=== PATIENT | female | born 1995 | race Caucasian/White ===

== ENCOUNTER 2018-11-12 01:21 | Emergency (ER) | payer SELFPAY ==
[2018-11-12 02:08] LABS: CHLORIDE,CL 104 mEq/L (98-106); SODIUM,NA 141 mEq/L (136-145)
--- NOTE | 2018-11-12 02:10 | EDM.PDOC ---
ED HPI GENERAL MEDICAL PROBLEM - General Chief Complaint: General Stated Complaint: SHORT OF BREATH, NECK PAIN Time Seen by Provider: 11/12/18 01:38 Source of Information: Reports: Patient History Limitations: Reports: No Limitations - History of Present Illness INITIAL COMMENTS - FREE TEXT/NARRATIVE: Kassie is a 23 yo female who presents to the ED, accompanied by significant other, with concerns of shortness of breath. States she has a discomfort when she takes a full inspiration. She does get some discomfort in the right posterior shoulder/neck area as well with deep inspiration. Denies any other chest pain. States the shortness of breath feeling has been present for the last week. Does not get worse with exertion. Denies any chance of . No history of lung disease or heart problems. States has otherwise been healthy. No recent infections or upper respiratory symptoms. 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 [No Known Home Meds] 11/12/18 [History] Past Medical History - Past Health History Medical/Surgical History: Denies Medical/Surgical History - Past Surgical History GI Surgical History: Reports: Appendectomy, Cholecystectomy Social & Family History - Tobacco Use Smoking Status *Q: Current Every Day Smoker Years of Tobacco use: 1 Packs/Tins Daily: 1 ED ROS GENERAL - Review of Systems Review Of Systems: ROS reveals no pertinent complaints other than HPI. Constitutional: Denies: Fever, Chills, Diaphoresis HEENT: Reports: No Symptoms Respiratory: Reports: Shortness of Breath, Pleuritic Chest Pain. Denies: Wheezing, Cough Cardiovascular: Reports: No Symptoms GI/Abdominal: Reports: No Symptoms Skin: Reports: No Symptoms Neurological: Reports: No Symptoms Psychiatric: Reports: Anxiety ED EXAM, GENERAL - Physical Exam Exam: See Below Exam Limited By: No Limitations General Appearance: Alert, WD/WN, No Apparent Distress Ears: Normal External Exam, Normal Canal, Hearing Grossly Normal, Normal TMs Nose: Normal Inspection, Normal Mucosa, No Blood Throat/Mouth: Normal Inspection, Normal Lips, Normal Teeth, Normal Gums, Normal Oropharynx, Normal Voice, No Airway Compromise Head: Atraumatic, Normocephalic Neck: Normal Inspection, Supple Respiratory/Chest: No Respiratory Distress, Lungs Clear, Normal Breath Sounds, No Accessory Muscle Use, Chest Non-Tender. No: Rales, Rhonchi, Wheezing, Stridor, Accessory Muscle Use, Retractions, Splinting, Prolonged Expiration Cardiovascular: Regular Rate, Rhythm, No Murmur GI/Abdominal: Normal Bowel Sounds, Soft, Non-Tender, No Distention, No Mass. No : Guarding, Rigid, Hepatomegaly, Splenomegaly Extremities: Normal Inspection, No Pedal Edema, Normal Capillary Refill Neurological: Alert, Oriented, Normal Cognition Psychiatric: Anxious Skin Exam: Warm, Dry, Intact, Normal Color, No Rash EKG INTERPRETATION EKG Date: 11/12/18 Time: 02:00 Rhythm: NSR Comparison: NA - No Prior EKG Course - Vital Signs Last Recorded V/S: Last Vital Signs Temp 97.7 F 11/12/18 01:25 Pulse 86 11/12/18 01:25 Resp 16 11/12/18 01:25 BP 155/79 H 11/12/18 01:25 Pulse Ox 100 11/12/18 01:25 - Orders/Labs/Meds Orders: Active Orders 24 hr Category Date Time Status EKG Documentation Completion [RC] STAT Care 11/12/18 01:54 Ordered BASIC METABOLIC PANEL,BMP [CHEM] Stat Lab 11/12/18 01:53 Ordered C-REACTIVE PROTEIN [CHEM] Stat Lab 11/12/18 01:53 Ordered CBC WITH AUTO DIFF [HEME] Stat Lab 11/12/18 01:53 Ordered HCG QUALITATIVE,URINE [URCHEM] Stat Lab 11/12/18 01:53 Ordered Departure - Departure Time of Disposition: 02:33 Disposition: Home, Self-Care 01 Clinical Impression: Pleurisy, Shortness of breath - Discharge Information Instructions: Shortness of Breath, Adult, [id number], Pleurisy, [id number] Referrals: PCP,None [Primary Care Provider] - Additional Instructions: 1) Steroid injection given in ER 2) May take ibuprofen 400mg two or three times a day as needed 3) Rest today 4) If symptoms worsen, any new onset of symptoms, recommend returning for reevaluation. 5) Handout on shortness of breath and pleurisy attached. - Problem List & Annotations (1) Pleurisy SNOMED Code(s): 740749018 Code(s): R09.1 - PLEURISY Status: Acute Current Visit: Yes (2) Shortness of breath SNOMED Code(s): 177714454 Code(s): R06.02 - SHORTNESS OF BREATH Status: Acute Current Visit: Yes - My Orders Last 24 Hours: My Active Orders 11/12/18 01:53 BASIC METABOLIC PANEL,BMP [CHEM] Stat C-REACTIVE PROTEIN [CHEM] Stat CBC WITH AUTO DIFF [HEME] Stat HCG QUALITATIVE,URINE [URCHEM] Stat 11/12/18 01:54 EKG Documentation Completion [RC] STAT - Assessment/Plan Last 24 Hours: My Active Orders 11/12/18 01:53 BASIC METABOLIC PANEL,BMP [CHEM] Stat C-REACTIVE PROTEIN [CHEM] Stat CBC WITH AUTO DIFF [HEME] Stat HCG QUALITATIVE,URINE [URCHEM] Stat 11/12/18 01:54 EKG Documentation Completion [RC] STAT Plan: Labs were unremarkable today. EKG showed NSR. Elected to wait on chest x-ray as lungs were clear and oxygen saturation of 99% on RA. Discussed pleurisy with Kassie. See additional instructions.
[2018-11-12] MEDS ORDERED: methylPREDNISolone Sodium Succinate 125 MG/2 ML SDV IM ONE (02:24)
== END 2018-11-12 02:40 | disposition home or self-care (01) ==
LOC: CC.ED 01:21
DX: R09.1 Pleurisy (principal); F17.210 Nicotine dependence, cigarettes, uncomplicated
CPT/HCPCS: 36415; 80048; 81025; 85025; 86140; 93005; 96372; 99283; J2930

== ENCOUNTER 2019-12-13 00:15 | Emergency (ER) | payer BC ==
[2019-12-13] MEDS ORDERED: Ondansetron 4 MG/2 ML SDV IVPUSH STA (00:32)
[2019-12-13] MEDS ORDERED: Sodium Chloride 0.9% 1,000 ML IV ONE (00:32)
[2019-12-13] MEDS ORDERED: LORazepam 2 MG/ML Syringe IVPUSH ONE ×2 (00:32→01:56)
--- NOTE | 2019-12-13 00:41 | EDM.PDOC ---
ED HPI GENERAL MEDICAL PROBLEM - General Chief Complaint: Chest Pain Stated Complaint: left chest pain Time Seen by Provider: 12/13/19 00:19 Source of Information: Reports: Patient History Limitations: Reports: No Limitations - History of Present Illness INITIAL COMMENTS - FREE TEXT/NARRATIVE: This patient is a 24 year old female that presents to the ER. Patient reports that started on Saturday with some mild congestion, cough, shortness of breath, headache, fatigue. She reports that then this evening she was at the bar having some drinks and drinking redbull and vokda, she had four drinks. She reports that she felt like almost blacked out, but she remembers everything. She reports that she had a sudden pain, heaviness in her chest, she became short of breath, nauseated, and has vomited. She reports that she has never felt like this before. Patient arrived to the ER, she is tearful, anxious, and has continued pain in her chest. She reports she works at the [employer] and has been around people with COVID. She reports being tested at the [employer] today, but has not got those results yet. Patient does JUUL. Onset: Today Onset Date: 12/12/19 Duration: Hour(s): (1) Location: Reports: Chest Quality: Reports: Other (Heavy, sitting on chest) Severity: Moderate Improves with: Reports: None Worsens with: Reports: None Associated Symptoms: Reports: Chest Pain, Cough, Headaches, Nausea/Vomiting, Shortness of Breath. Denies: Confusion, cough w sputum, Diaphoresis, Fever/Chills, Loss of Appetite, Malaise, Rash, Seizure, Syncope, Weakness Left Anterior Chest Pain Score (Numeric/FACES): 8 - Related Data Allergies Allergy/AdvReac Type Severity Reaction Status Date / Time latex Allergy Rash Verified 11/12/18 01:21 strawberry Allergy Difficulty Verified 12/13/19 00:23 Breathing Home Meds: Home Meds Sertraline HCl 50 mg PO DAILY 12/13/19 [History] Past Medical History - Past Health History Medical/Surgical History: Denies Medical/Surgical History - Past Surgical History GI Surgical History: Reports: Appendectomy, Cholecystectomy ED ROS GENERAL - Review of Systems Review Of Systems: See Below Constitutional: Reports: Fatigue HEENT: Reports: Sinus Problem (congestion) Respiratory: Reports: Shortness of Breath, Cough Cardiovascular: Reports: Chest Pain. Denies: Dyspnea on Exertion, Lightheadedness, Palpitations, Syncope Endocrine: Reports: No Symptoms GI/Abdominal: Reports: Abdominal Pain, Nausea, Vomiting. Denies: Diarrhea : Reports: No Symptoms Musculoskeletal: Reports: No Symptoms Skin: Reports: No Symptoms Neurological: Reports: Headache. Denies: Seizure, Syncope, Weakness, Change in Speech Psychiatric: Reports: Anxiety Hematologic/Lymphatic: Reports: No Symptoms Immunologic: Reports: No Symptoms ED EXAM, GENERAL - Physical Exam Exam: See Below Exam Limited By: No Limitations General Appearance: Alert, WD/WN, No Apparent Distress, Anxious Eye Exam: Bilateral Eye: Normal Inspection, PERRL Ears: Normal External Exam, Normal Canal, Hearing Grossly Normal, Normal TMs Ear Exam: Bilateral Ear: Auricle Normal, Canal Normal, TM normal Nose: Normal Inspection, Normal Mucosa, No Blood Throat/Mouth: Normal Inspection, Normal Lips, Normal Teeth, Normal Gums, Normal Oropharynx, Normal Voice, No Airway Compromise Head: Atraumatic, Normocephalic Neck: Normal Inspection, Supple, Non-Tender, Full Range of Motion Respiratory/Chest: No Respiratory Distress, Lungs Clear, Normal Breath Sounds, No Accessory Muscle Use. No: Respiratory Distress, Decreased Breath Sounds, Crackles, Rales, Rhonchi, Wheezing, Stridor, Pleural Rub, Accessory Muscle Use, Retractions, Splinting, Prolonged Expiration Cardiovascular: Normal Peripheral Pulses, Regular Rate, Rhythm, No Edema, No Gallop, No JVD, No Murmur, No Rub Peripheral Pulses: 2+: Radial (L), Radial (R), Posterior Tibial (L), Posterior Tibial (R) GI/Abdominal: Normal Bowel Sounds, Soft, No Organomegaly, No Distention, No Abnormal Bruit, No Mass, Pelvis Stable, Tender (lower abdomen, over the bladder region. Mild. ). No: Guarding, Rigid, Rebound, Hernia (Female) Exam: Deferred Rectal (Female) Exam: Deferred Back Exam: Normal Inspection, Full Range of Motion. No: CVA Tenderness (L), CVA Tenderness (R) Extremities: Normal Inspection, Normal Range of Motion, Non-Tender, No Pedal Edema, Normal Capillary Refill Neurological: Alert, Oriented, Normal Cognition, Normal Gait, No Motor/Sensory Deficits, Other (No gait ataxia) Psychiatric: Anxious, Tearful Skin Exam: Warm, Dry, Intact, Normal Color, No Rash Lymphatic: No Adenopathy #1 Interpretation EKG Date: 12/13/19 Time: 00:34 Rhythm: NSR Rate (Beats/Min): 84 [place]: Normal P-Wave: Present QRS: Normal ST-T: Normal QT: Normal Comparison: NA - No Prior EKG Course - Vital Signs Last Recorded V/S: Last Vital Signs Temp 97.7 F 12/13/19 01:49 CDT Pulse 81 12/13/19 01:08 SIGNAL FITTER Resp 19 12/13/19 01:08 SIGNAL FITTER BP 121/72 12/13/19 01:08 SIGNAL FITTER Pulse Ox 98 12/13/19 01:08 SIGNAL FITTER - Orders/Labs/Meds Orders: Active Orders 24 hr Category Date Time Status Cardiac Monitoring [RC] . DIRECTED Care 12/13/19 00:33 Active EKG Documentation Completion [RC] STAT Care 12/13/19 00:31 Active INR,PT,PROTHROMBIN TIME [COAG] Stat Lab 12/13/19 00:50 Received PTT,PARTIAL THROMBOPLSTIN TIME [COAG] Stat Lab 12/13/19 00:50 Received TROPONIN I [CHEM] Stat Lab 12/13/19 03:50 Ordered TROPONIN I [CHEM] Stat Lab 12/13/19 04:50 Stop Req Labs: Laboratory Tests 12/13/19 12/13/19 12/13/19 Range/Units 00:30 00:31 00:31 WBC (5.0-10.0) 10^3/uL RBC (4.00-5.50) 10^6/uL Hgb (12.0-16.0) g/dL Hct (37.0-47.0) % MCV (82.0-94.0) fL MCH (27.0-32.0) pg MCHC (33.0-38.0) g/dL RDW Coeff of Shy (11.0-15.0) % Plt Count (150-400) 10^3/uL Neut % (Auto) (35-85) % Lymph % (Auto) (10-55) % [place]ney % (Auto) (0-16) % Eos % (Auto) (0-5) % Baso % (Auto) (0-3) % Neut # (Auto) (1.80-7.00) 10^3/uL Lymph # (Auto) (1.00-4.80) 10^3/uL Finney # (Auto) (0.00-0.80) 10^3/uL Eos # (Auto) (0.00-0.45) 10^3/uL Baso # (Auto) 10^3/uL PT (9.7-12.3) SEC INR (0.92-1.18) APTT (23.2-32.3) SEC D-Dimer, Quantitative (0.00-0.50) Sodium (136-145) mEq/L Potassium (3.5-5.0) mEq/L Chloride (98-106) mEq/L Carbon Dioxide (21-32) mmol/L BUN (7-18) mg/dL Creatinine (0.6-1.0) mg/dL Est Cr Clr Drug Dosing mL/min Estimated GFR (MDRD) (>=60) mL/min Glucose (75-99) mg/dL Calcium (8.4-10.1) mg/dL Total Bilirubin (0.0-1.0) mg/dL AST (15-37) U/L ALT (12-78) U/L Alkaline Phosphatase (46-116) U/L Lactate Dehydrogenase (100-190) U/L Creatine Kinase (21-215) U/L Troponin I (0.00-0.06) ng/mL C-Reactive Protein (0.2-0.8) mg/dL Total Protein (6.4-8.2) g/dL Albumin (3.4-5.0) g/dL Urine Color Light yellow (YELLOW) Urine Appearance Clear (CLEAR) Urine pH 7.0 (4.5-8.0) Ur Specific [place] 1.020 (1.003-1.020) Urine Protein Negative (NEGATIVE) mg/dL Urine Glucose (UA) Negative (NEGATIVE) mg/dL Urine Ketones Negative (NEGATIVE) mg/dL Urine Occult Blood Negative (NEGATIVE) Urine Nitrite Negative (NEGATIVE) Urine Bilirubin Negative (NEGATIVE) Urine Urobilinogen 0.2 (0.2-1.0) EU/dL Ur Leukocyte Esterase Negative (NEGATIVE) Urine RBC Not seen (0-5) /HPF Urine WBC Not seen (0-5) /HPF Ur Epithelial Cells Few H (NOT SEEN) /HPF Urine Bacteria Few H (NOT SEEN) /HPF Urine HCG, Qual Negative Urine Opiates Screen (NEGATIVE) Ur Oxycodone Screen (NEGATIVE) Urine Methadone Screen (NEGATIVE) Ur Barbiturates Screen (NEGATIVE) U Tricyclic Antidepress (NEGATIVE) Ur Phencyclidine Scrn (NEGATIVE) Ur Amphetamine Screen (NEGATIVE) U Methamphetamines Scrn (NEGATIVE) Urine MDMA Screen (NEGATIVE) U Benzodiazepines Scrn (NEGATIVE) Urine Cocaine Screen (NEGATIVE) U Marijuana (THC) Screen (NEGATIVE) Ethyl Alcohol (0-3) mg/dL SARS CoV-2 RNA Rapid STAR Negative (NEGATIVE) 12/13/19 12/13/19 12/13/19 Range/Units 00:50 00:50 00:50 WBC 12.0 H (5.0-10.0) 10^3/uL RBC 4.82 (4.00-5.50) 10^6/uL Hgb 15.0 (12.0-16.0) g/dL Hct 43.5 (37.0-47.0) % MCV 90.2 (82.0-94.0) fL MCH 31.1 (27.0-32.0) pg MCHC 34.5 (33.0-38.0) g/dL RDW Coeff of Shy 12.2 (11.0-15.0) % Plt Count 286 (150-400) 10^3/uL Neut % (Auto) 81.5 (35-85) % Lymph % (Auto) 13.9 (10-55) % [place]ney % (Auto) 4.1 (0-16) % Eos % (Auto) 0.2 (0-5) % Baso % (Auto) 0.3 (0-3) % Neut # (Auto) 9.76 H (1.80-7.00) 10^3/uL Lymph # (Auto) 1.66 (1.00-4.80) 10^3/uL [place]ney # (Auto) 0.49 (0.00-0.80) 10^3/uL Eos # (Auto) 0.02 (0.00-0.45) 10^3/uL Baso # (Auto) 0.03 10^3/uL PT 9.9 (9.7-12.3) SEC INR 0.98 (0.92-1.18) APTT 22.1 L (23.2-32.3) SEC D-Dimer, Quantitative 0.26 (0.00-0.50) Sodium 143 (136-145) mEq/L Potassium 3.9 (3.5-5.0) mEq/L Chloride 106 (98-106) mEq/L Carbon Dioxide 31 (21-32) mmol/L BUN 4 L D (7-18) mg/dL Creatinine 0.8 (0.6-1.0) mg/dL Est Cr Clr Drug Dosing 93.64 mL/min Estimated GFR (MDRD) > 60 (>=60) mL/min Glucose 111 H (75-99) mg/dL Calcium 9.3 (8.4-10.1) mg/dL Total Bilirubin 0.4 (0.0-1.0) mg/dL AST 76 H (15-37) U/L ALT 56 (12-78) U/L Alkaline Phosphatase 92 (46-116) U/L Lactate Dehydrogenase 209 H (100-190) U/L Creatine Kinase 85 (21-215) U/L Troponin I < 0.017 (0.00-0.06) ng/mL C-Reactive Protein < 0.2 L (0.2-0.8) mg/dL Total Protein 8.2 (6.4-8.2) g/dL Albumin 4.5 (3.4-5.0) g/dL Urine Color (YELLOW) Urine Appearance (CLEAR) Urine pH (4.5-8.0) Ur Specific [place] (1.003-1.020) Urine Protein (NEGATIVE) mg/dL Urine Glucose (UA) (NEGATIVE) mg/dL Urine Ketones (NEGATIVE) mg/dL Urine Occult Blood (NEGATIVE) Urine Nitrite (NEGATIVE) Urine Bilirubin (NEGATIVE) Urine Urobilinogen (0.2-1.0) EU/dL Ur Leukocyte Esterase (NEGATIVE) Urine RBC (0-5) /HPF Urine WBC (0-5) /HPF Ur Epithelial Cells (NOT SEEN) /HPF Urine Bacteria (NOT SEEN) /HPF Urine HCG, Qual Urine Opiates Screen (NEGATIVE) Ur Oxycodone Screen (NEGATIVE) Urine Methadone Screen (NEGATIVE) Ur Barbiturates Screen (NEGATIVE) U Tricyclic Antidepress (NEGATIVE) Ur Phencyclidine Scrn (NEGATIVE) Ur Amphetamine Screen (NEGATIVE) U Methamphetamines Scrn (NEGATIVE) Urine MDMA Screen (NEGATIVE) U Benzodiazepines Scrn (NEGATIVE) Urine Cocaine Screen (NEGATIVE) U Marijuana (THC) Screen (NEGATIVE) Ethyl Alcohol 179 H (0-3) mg/dL SARS CoV-2 RNA Rapid STAR (NEGATIVE) 12/13/19 Range/Units 00:57 WBC (5.0-10.0) 10^3/uL RBC (4.00-5.50) 10^6/uL Hgb (12.0-16.0) g/dL Hct (37.0-47.0) % MCV (82.0-94.0) fL MCH (27.0-32.0) pg MCHC (33.0-38.0) g/dL RDW Coeff of Shy (11.0-15.0) % Plt Count (150-400) 10^3/uL Neut % (Auto) (35-85) % Lymph % (Auto) (10-55) % [place] % (Auto) (0-16) % Eos % (Auto) (0-5) % Baso % (Auto) (0-3) % Neut # (Auto) (1.80-7.00) 10^3/uL Lymph # (Auto) (1.00-4.80) 10^3/uL [place] # (Auto) (0.00-0.80) 10^3/uL Eos # (Auto) (0.00-0.45) 10^3/uL Baso # (Auto) 10^3/uL PT (9.7-12.3) SEC INR (0.92-1.18) APTT (23.2-32.3) SEC D-Dimer, Quantitative (0.00-0.50) Sodium (136-145) mEq/L Potassium (3.5-5.0) mEq/L Chloride (98-106) mEq/L Carbon Dioxide (21-32) mmol/L BUN (7-18) mg/dL Creatinine (0.6-1.0) mg/dL Est Cr Clr Drug Dosing mL/min Estimated GFR (MDRD) (>=60) mL/min Glucose (75-99) mg/dL Calcium (8.4-10.1) mg/dL Total Bilirubin (0.0-1.0) mg/dL AST (15-37) U/L ALT (12-78) U/L Alkaline Phosphatase (46-116) U/L Lactate Dehydrogenase (100-190) U/L Creatine Kinase (21-215) U/L Troponin I (0.00-0.06) ng/mL C-Reactive Protein (0.2-0.8) mg/dL Total Protein (6.4-8.2) g/dL Albumin (3.4-5.0) g/dL Urine Color (YELLOW) Urine Appearance (CLEAR) Urine pH (4.5-8.0) Ur Specific [place] (1.003-1.020) Urine Protein (NEGATIVE) mg/dL Urine Glucose (UA) (NEGATIVE) mg/dL Urine Ketones (NEGATIVE) mg/dL Urine Occult Blood (NEGATIVE) Urine Nitrite (NEGATIVE) Urine Bilirubin (NEGATIVE) Urine Urobilinogen (0.2-1.0) EU/dL Ur Leukocyte Esterase (NEGATIVE) Urine RBC (0-5) /HPF Urine WBC (0-5) /HPF Ur Epithelial Cells (NOT SEEN) /HPF Urine Bacteria (NOT SEEN) /HPF Urine HCG, Qual Urine Opiates Screen Negative (NEGATIVE) Ur Oxycodone Screen Negative (NEGATIVE) Urine Methadone Screen Negative (NEGATIVE) Ur Barbiturates Screen Negative (NEGATIVE) U Tricyclic Antidepress Negative (NEGATIVE) Ur Phencyclidine Scrn Negative (NEGATIVE) Ur Amphetamine Screen Negative (NEGATIVE) U Methamphetamines Scrn Negative (NEGATIVE) Urine MDMA Screen Negative (NEGATIVE) U Benzodiazepines Scrn Negative (NEGATIVE) Urine Cocaine Screen Negative (NEGATIVE) U Marijuana (THC) Screen Negative (NEGATIVE) Ethyl Alcohol (0-3) mg/dL SARS CoV-2 RNA Rapid STAR (NEGATIVE) Meds: Medications Discontinued Medications Generic Name Dose Route Start Last Admin Trade Name Freq PRN Reason Stop Dose Admin Sodium Chloride 1,000 mls @ 1,000 mls/hr 12/13/19 00:32 12/13/19 01:03 CDT Normal Saline IV 12/13/19 01:31 SIGNAL FITTER 1,000 mls/hr .BOLUS ONE Administration Lorazepam 0.5 mg 12/13/19 00:32 12/13/19 01:02 CDT Ativan IVPUSH 12/13/19 00:33 0.5 mg ONETIME ONE Administration Lorazepam 0.5 mg 12/13/19 01:56 SIGNAL FITTER 12/13/19 01:02 SIGNAL FITTER Ativan IVPUSH 12/13/19 01:57 SIGNAL FITTER 0.5 mg ONETIME ONE Administration Ondansetron HCl 4 mg 12/13/19 00:32 12/13/19 01:03 CDT Zofran IVPUSH 12/13/19 00:33 4 mg NOW STA Administration Ondansetron HCl 4 mg 12/13/19 01:30 SIGNAL FITTER 12/13/19 01:32 SIGNAL FITTER Zofran Odt PO 12/13/19 01:31 SIGNAL FITTER 4 mg ONETIME ONE Administration - Re-Assessments/Exams Free Text/Narrative Re-Assessment/Exam: 12/13/19 01:57 CDT Patient reports she is feeling a little anxious, but improved from initial presentation. She reports her pain in chest is better. I will order more Ativan, as she said it helped a lot. I discussed with the patient all her results. I feel patient complaint is related to several factors such as alcohol, red bull, JUULing, and her Sertraline. The patient initially told the nurse that she had feelings of harming herself without a plan, as she had years ago hx of cutting herself. However, now as patient is more relaxed and not as tearful, she reports that she does not want to hurt herself. She said that earlier because she was in a lot of pain and upset. But, now she is not suicidal or homicidal or want to cause self harm. The patient gave me permission to jose angel to her boyfriend who is here to pick her up. He works as deputy for [employer]. I also discussed with patient and boyfriend her liver enzymes and need a followup recheck with PCP. 12/13/19 01:08 SIGNAL FITTER (Clock turned back one hour) Patient appears much more relaxed with boyfriend now at bedside and after more ativan. No longer crying, smiling. Will discharge patient with boyfriend. 12/13/19 01:44 SIGNAL FITTER Upon finishing fluids and discharge, the patient became nauseated. She was given ODT Zofran. I will repeat a second troponin to ensure no cardiac event due to her chest pain she was having earlier and continued nausea recurrence. She is at a risk due to redbull, JUULing. If the troponin is negative, will discharge home, discussed this with patient and she has agreed. she currently reports she has no pain in her chest. Departure - Departure Time of Disposition: 04:20 Disposition: Home, Self-Care 01 Condition: Fair Clinical Impression: Acute dyspnea, Panic attack, Atypical chest pain Alcohol intoxication Qualifiers: Complication of substance-induced condition: uncomplicated Qualified Code(s): F10.920 - Alcohol use, unspecified with intoxication, uncomplicated Instructions: Shortness of Breath, Adult, [id number], Binge-Drinking Information, Adult, Panic Attack, Jxlw-[id number]-[id number], Nonspecific Chest Pain, Adult, [id number] Referrals: PCP,None [Primary Care Provider] - Forms: ED Department Discharge Additional Instructions: Followup with primary care provider concerning your liver enzymes and recheck Return to the ER for worsening of condition or any emergent concerns Increase water intake DO Not drink when taking medications Stop JUULing DO Not drink energy drinks Go home and rest Sepsis Event Note (ED) - Focused Exam Vital Signs: Vital Signs Temp Pulse Resp BP Pulse Ox 12/13/19 01:08 SIGNAL FITTER 81 19 121/72 98 12/13/19 01:49 CDT 97.7 F 72 18 111/59 L 99 12/13/19 01:00 CDT 98.4 F 78 20 124/83 100 12/13/19 00:24 98.3 F 72 19 117/77 99 - My Orders Last 24 Hours: My Active Orders 12/13/19 00:31 EKG Documentation Completion [RC] STAT 12/13/19 00:33 Cardiac Monitoring [RC] . DIRECTED 12/13/19 00:50 INR,PT,PROTHROMBIN TIME [COAG] Stat PTT,PARTIAL THROMBOPLSTIN TIME [COAG] Stat 12/13/19 03:50 TROPONIN I [CHEM] Stat 12/13/19 04:50 TROPONIN I [CHEM] Stat - Assessment/Plan Last 24 Hours: My Active Orders 12/13/19 00:31 EKG Documentation Completion [RC] STAT 12/13/19 00:33 Cardiac Monitoring [RC] . DIRECTED 12/13/19 00:50 INR,PT,PROTHROMBIN TIME [COAG] Stat PTT,PARTIAL THROMBOPLSTIN TIME [COAG] Stat 12/13/19 03:50 TROPONIN I [CHEM] Stat 12/13/19 04:50 TROPONIN I [CHEM] Stat Plan: PLEASE SEE RN NOTE FOR PFSH
[2019-12-13 01:09] LABS: PTT,PARTIAL THROMBOPLSTIN TIME 22.1 SEC (23.2-32.3)
[2019-12-13 01:13] LABS: CHLORIDE,CL 106 mEq/L (98-106); SODIUM,NA 143 mEq/L (136-145)
[2019-12-13] MEDS ORDERED: Ondansetron 4 MG Tab.DIS PO ONE (01:30)
== END 2019-12-13 04:37 | disposition home or self-care (01) ==
LOC: CC.ED 00:15
DX: F41.0 Panic disorder [episodic paroxysmal anxiety] (principal); F10.120 Alcohol abuse with intoxication, uncomplicated; Z91.040 Latex allergy status; Z91.018 Allergy to other foods; Z90.49 Acquired absence of other specified parts of digestive tract; Z20.828 Contact with and (suspected) exposure to other viral communicable diseases
CPT/HCPCS: 36415; 80053; 80305-QW; 80307; 81001; 81025; 82550; 83615; 84484; 85025; 85379; 85610; 85730; 86140; 93005; 96374; 96375; 99285-25; A9270-GY; J2060; J2405; J7030; U0002

== ENCOUNTER → 2020-04-26 | Day surgery (SDC) | payer BC ==
[~2020-04-26] MED LIST: Benzocaine 20% Oral Spray 59.2 ML Canister MUCMEM ONE; Lactated Ringers 1,000 ML IV SCH; Meperidine PF 25 MG/ML SDV IV ONE; Midazolam 1 MG/ML 2 ML SDV IV ONE
--- NOTE | 2020-04-26 10:26 | OR ---
DATE OF OPERATION: 04/26/2020 PREOPERATIVE DIAGNOSIS: EPIGASTRIC PAIN. POSTOPERATIVE DIAGNOSIS: EPIGASTRIC PAIN. SURGEON: Shine Wheeler MD PROCEDURE: DIAGNOSTIC ESOPHAGOGASTRODUODENOSCOPY WITH BIOPSIES X3, RD. ANESTHESIA: Conscious sedation with continuous O2 sat monitoring and nurse assist with O2 sats remaining above 90% for the entire procedure. COMPLICATIONS: None. SPECIMEN: 1. Duodenal bulb biopsy x1. 2. Antral biopsy x2. 3. Antral RD. FINDINGS: 1. Full-length diagnostic EGD. 2. Mild duodenitis, duodenal bulb. 3. Peptic ulcer disease with multiple antral ulcers. 4. Significant spontaneous GERD without esophagitis or Sandoval's changes. RECOMMENDATIONS: The patient will be treated with appropriate proton pump therapy and H. pylori treatment pending CLOtest. INDICATIONS: The patient has been having some ongoing issues with epigastric pain and burning. She was seen in [facility] and they recommended an EGD at that time. She declined. She presented to my office with ongoing symptoms and we proceeded accordingly. DESCRIPTION OF PROCEDURE: The patient was prepped and draped, placed in the left lateral decubitus position. A lubricated Olympus gastroscope was inserted over a bit, advanced to cricopharyngeus area, and easily intubated in the esophagus. The esophageal lining was benign in its entire course. The Z-line was crisp and sharp at 40 cm. There was no distal esophagitis, stricturing, ulceration, or Sandoval's changes, but there was spontaneous reflux seen throughout the entire procedure. The scope was easily advanced into the stomach, through the pylorus, and into the second portion of the duodenum. This was benign. However, the duodenal bulb had some very mild duodenitis. A biopsy was taken. The scope was brought back into the stomach and retroflexed. The upper fundus and cardia appeared unremarkable. Upon straightening, the most distal portion of the fundus and most of the antrum had changes of gastritis. There were multiple small ulcerations in the proximal antrum and 2 biopsies were taken along with a CLOtest. No other masses or lesions were seen. Air was then suctioned and the scope removed without complication. ELIANA/JOSE /[id number]
== END ==
LOC: CC.SDS 07:54
PROVIDERS: ATTEND Family Medicine
DX: K29.50 Unspecified chronic gastritis without bleeding (principal); B96.81 Helicobacter pylori [H. pylori] as the cause of diseases classified elsewhere; K29.80 Duodenitis without bleeding; K21.9 Gastro-esophageal reflux disease without esophagitis; Z88.8 Allergy status to other drugs, medicaments and biological substances; Z79.899 Other long term (current) drug therapy
CPT/HCPCS: 36415; 84703; 87081; J2175; J2250; J7120

== ENCOUNTER 2020-05-30 19:02 | Emergency (ER) | payer OTHER, BC ==
[2020-05-30] MEDS: fentaNYL 50 MCG/ML SDV IVPUSH ONE (20:16)
--- NOTE | 2020-05-30 20:46 | EDM.PDOC ---
ED HPI GENERAL MEDICAL PROBLEM - General Chief Complaint: Lower Extremity Injury/Pain Stated Complaint: L groin pain- injury at work Time Seen by Provider: 05/30/20 19:15 Source of Information: Reports: Patient History Limitations: Reports: No Limitations - History of Present Illness INITIAL COMMENTS - FREE TEXT/NARRATIVE: Kassie is a 25 yo female who presents to the ED with c/o left hip/groin pain. 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 She reports as they lifted, he was off balance and began to fall. She reports she tried to stop his fall by bracing with her leg. Had to hold him up for approximately 1 minute until help arrived so the resident did not fall. She reports instant pain to her left hip radiating to her left groin. She was unable to bear weight. Reports pain with any movement 10/10 and pain at rest 7/10. She denies any loss of bowel/bladder. Denies any numbness/tingling. She is able to dorsi/plantar flex. Has signifcant pain with any passive ROM. Unable to do active ROM without severe pain. Onset: Today, Sudden Duration: Constant Location: Reports: Lower Extremity, Left Quality: Reports: Sharp, Stabbing Severity: Severe Improves with: Reports: None Worsens with: Reports: Movement Associated Symptoms: Reports: No Other Symptoms Left Groin Pain Score (Numeric/FACES): 10 - Related Data Allergies Allergy/AdvReac Type Severity Reaction Status Date / Time diazepam Allergy Cannot Verified 05/30/20 19:04 Remember latex Allergy Rash Verified 05/30/20 19:04 strawberry Allergy Difficulty Verified 05/30/20 19:04 Breathing Home Meds: Home Meds Sertraline HCl 50 mg PO DAILY 12/13/19 [History] Past Medical History - Past Health History Medical/Surgical History: Denies Medical/Surgical History Psychiatric History: Reports: Anxiety - Past Surgical History GI Surgical History: Reports: Appendectomy, Cholecystectomy Social & Family History - Family History Family Medical History: No Pertinent Family History - Tobacco Use Tobacco Use Status *Q: Never Tobacco User - Recreational Drug Use Recreational Drug Use: No Review of Systems - Review of Systems Review Of Systems: Comprehensive ROS is negative, except as noted in HPI. ED EXAM, GENERAL - Physical Exam Exam: See Below Exam Limited By: No Limitations General Appearance: Alert, WD/WN, Moderate Distress Peripheral Pulses: 2+: Posterior Tibial (L), Dorsalis Pedis (L) GI/Abdominal: Pelvis Stable Back Exam: Normal Inspection, Full Range of Motion. No: Paraspinal Tenderness, Vertebral Tenderness Extremities: Normal Capillary Refill, Leg Pain, Limited Range of Motion (patient unable to flex, extend, abduct or adduct left hip without significant pain), Other (significant tenderness with palpation of left hip and pelvis) Neurological: No Motor/Sensory Deficits, Abnormal Gait (nonweightbearing LLE) Psychiatric: Tearful Skin Exam: No: Ecchymosis Course - Vital Signs Last Recorded V/S: Last Vital Signs Temp 99.6 F 05/30/20 19:02 Pulse 117 H 05/30/20 19:02 Resp 18 05/30/20 19:02 BP 152/85 H 05/30/20 19:02 Pulse Ox 100 05/30/20 19:02 - Orders/Labs/Meds Orders: Active Orders 24 hr Category Date Time Status Hip Min 2V or 3V w Pelvis Lt [CR] Stat Exams 05/30/20 19:42 Taken Lumbar Spine 2 or 3V [CR] Stat Exams 05/30/20 19:43 Taken Meds: Medications Discontinued Medications Generic Name Dose Route Start Last Admin Trade Name Kelsi PRPauly Reason Stop Dose Admin Hydrocodone Bitart/Acetaminophen 2 packet 05/30/20 20:42 05/30/20 21:31 Take Home: Acetaminophen/Hydrocodone 325-5 Mg, 2 Tab Pack PO 05/30/20 20:43 Not Given ONETIME ONE Fentanyl 25 mcg 05/30/20 19:52 05/30/20 20:16 Fentanyl 50 Mcg/Ml Sdv IVPUSH 05/30/20 19:53 25 mcg ONETIME ONE Administration Departure - Departure Time of Disposition: 20:42 Disposition: Home, Self-Care 01 Condition: Fair Clinical Impression: Acute pain of left hip, Left groin pain - Discharge Information *PRESCRIPTION DRUG MONITORING PROGRAM REVIEWED*: Yes *COPY OF PRESCRIPTION DRUG MONITORING REPORT IN PATIENT OLGA: Yes Instructions: Hip Pain, Pain Medicine Instructions, [id number] Referrals: PCP,None [Primary Care Provider] - Forms: ED Department Discharge Additional Instructions: - Recommend weight bearing as tolerated. Use crutches as needed - Tylenol or ibuprofen as needed for less severe pain - [place] 1 tablet every 4 hours as needed for severe pain - Recommend ice to affected area 3.5 x/day the next few days - Recommend follow up with Dr. Wheeler for recheck. As discussed, may need further imaging given type/severity of pain - No work until symptoms improve - Return to ED for emergent needs Sepsis Event Note (ED) - Evaluation Sepsis Screening Result: No Definite Risk - Focused Exam Vital Signs: Vital Signs Temp Pulse Resp BP Pulse Ox 05/30/20 19:02 99.6 F 117 H 18 152/85 H 100 - Problem List & Annotations (1) Acute pain of left hip SNOMED Code(s): 39583322 Code(s): M25.552 - PAIN IN LEFT HIP Status: Acute (2) Left groin pain SNOMED Code(s): 87381380916127479 Code(s): R10.32 - LEFT LOWER QUADRANT PAIN Status: Acute - My Orders Last 24 Hours: My Active Orders 05/30/20 19:42 Hip Min 2V or 3V w Pelvis Lt [CR] Stat 05/30/20 19:43 Lumbar Spine 2 or 3V [CR] Stat - Assessment/Plan Last 24 Hours: My Active Orders 05/30/20 19:42 Hip Min 2V or 3V w Pelvis Lt [CR] Stat 05/30/20 19:43 Lumbar Spine 2 or 3V [CR] Stat Assessment:: Acute pain of left hip Left groin pain Injury at work Plan: As above.
[2020-05-30] MEDS: Take Home: Acetaminophen/HYDROcodone 325-5 MG, 2 Tab Pack PO ONE (21:31)
== END 2020-05-30 20:50 | disposition home or self-care (01) ==
LOC: CC.ED 19:02
DX: M25.552 Pain in left hip (principal); R10.32 Left lower quadrant pain; R10.2 Pelvic and perineal pain; Z90.49 Acquired absence of other specified parts of digestive tract; Z91.040 Latex allergy status; Z91.018 Allergy to other foods; Z88.5 Allergy status to narcotic agent
CPT/HCPCS: 72100; 73502; A9270; J3010; 96374; 99283-25

== ENCOUNTER 2021-01-27 15:48 | Emergency (ER) | payer BC ==
[2021-01-27 16:26] LABS: CHLORIDE,CL 106 mEq/L (98-106); SODIUM,NA 139 mEq/L (136-145)
--- NOTE | 2021-01-27 16:48 | EDM.PDOC ---
ED HPI GENERAL MEDICAL PROBLEM - General Chief Complaint: General Stated Complaint: high blood pressure Time Seen by Provider: 01/27/21 16:21 Source of Information: Reports: Patient History Limitations: Reports: No Limitations - History of Present Illness INITIAL COMMENTS - FREE TEXT/NARRATIVE: States that she was at work and she had a headache and just didn't feel right. She had her BP checked while there and the staff at [facility] felt that it was high and brought her to ER. At work her BP was as in the [place]. She states that she feels a little off balance but not spinning dizzy. No nausea. She feels better now that she is here but still not quit right. She states that she has felt really tired recently. Is trying to get pg. Last LMP was January 01 and was normal. Location: Reports: Generalized Headache Pain Score (Numeric/FACES): 6 - Related Data Allergies Allergy/AdvReac Type Severity Reaction Status Date / Time COVID-19 vaccine, mRNA, Allergy Tachycardia Verified 01/27/21 16:17 [id number], diazepam Allergy Cannot Verified 01/27/21 16:17 Remember latex Allergy Rash Verified 01/27/21 16:17 strawberry Allergy Difficulty Verified 01/27/21 16:17 Breathing Home Meds: Home Meds Sertraline HCl 50 mg PO DAILY 12/13/19 [History] Past Medical History - Past Health History Medical/Surgical History: Denies Medical/Surgical History Psychiatric History: Reports: Anxiety - Past Surgical History GI Surgical History: Reports: Appendectomy, Cholecystectomy Social & Family History - Family History Family Medical History: No Pertinent Family History - Tobacco Use Tobacco Use Status *Q: Never Tobacco User Second Hand Smoke Exposure: No ED ROS GENERAL - Review of Systems Review Of Systems: See Below Constitutional: Reports: No Symptoms HEENT: Reports: No Symptoms Respiratory: Reports: No Symptoms Cardiovascular: Reports: No Symptoms GI/Abdominal: Reports: No Symptoms Neurological: Reports: Headache, Other (lightheaded) ED EXAM, GENERAL - Physical Exam Exam: See Below Exam Limited By: No Limitations General Appearance: Alert, WD/WN, No Apparent Distress Eye Exam: Right Eye: PERRL Ears: Normal External Exam, Normal Canal Head: Atraumatic, Normocephalic Neck: Normal Inspection, Supple, Non-Tender, Full Range of Motion Respiratory/Chest: No Respiratory Distress, Lungs Clear, Normal Breath Sounds Cardiovascular: Regular Rate, Rhythm, No Edema GI/Abdominal: Normal Bowel Sounds, Soft Extremities: Normal Capillary Refill Neurological: Alert, Oriented Psychiatric: Normal Affect Skin Exam: Warm, Dry, Intact Course - Vital Signs Last Recorded V/S: Last Vital Signs Temp 99.6 F 01/27/21 16:24 Pulse 90 01/27/21 16:24 Resp 20 01/27/21 16:24 BP 161/94 H 01/27/21 16:24 Pulse Ox 99 01/27/21 16:24 - Orders/Labs/Meds Labs: Laboratory Tests 01/27/21 01/27/21 Range/Units 16:16 16:30 Sodium 139 (136-145) mEq/L Potassium 3.9 (3.5-5.0) mEq/L Chloride 106 (98-106) mEq/L Carbon Dioxide 25 (21-32) mmol/L BUN 9 D (7-18) mg/dL Creatinine 0.8 (0.6-1.0) mg/dL Est Cr Clr Drug Dosing 92.83 mL/min Estimated GFR (MDRD) > 60 (>=60) mL/min Glucose 102 H (75-99) mg/dL Calcium 8.9 (8.4-10.1) mg/dL Urine HCG, Qual Negative - Re-Assessments/Exams Free Text/Narrative Re-Assessment/Exam: 01/27/21 1640 Her BP has gone down since she has been in the ER. test is negative. Will discharge at this time and have her follow up in the clinic for BP check. Recheck earlier if symptoms reoccur. Departure - Departure Time of Disposition: 16:48 Disposition: Home, Self-Care 01 Condition: Good Clinical Impression: Hypertension screening - Discharge Information *PRESCRIPTION DRUG MONITORING PROGRAM REVIEWED*: Not Applicable *COPY OF PRESCRIPTION DRUG MONITORING REPORT IN PATIENT OLGA: Not Applicable Referrals: PCP,None [Primary Care Provider] - Forms: ED Department Discharge Additional Instructions: Push fluids as much as possible Tylenol as needed for discomfort No work tonight. Can work tomorrow if feeling better. Follow up in the clinic next week for BP check or sooner if symptoms change. Sepsis Event Note (ED) - Evaluation Sepsis Screening Result: No Definite Risk
== END 2021-01-27 17:00 | disposition home or self-care (01) ==
LOC: CC.ED 15:48
DX: I10 Essential (primary) hypertension (principal); Z88.7 Allergy status to serum and vaccine; Z91.040 Latex allergy status; Z88.5 Allergy status to narcotic agent; Z91.018 Allergy to other foods
CPT/HCPCS: 36415; 80048; 81025; 99283